=== PATIENT | male | born 1990 | race Caucasian/White ===

== ENCOUNTER 2016-06-27 20:01 | Emergency (ER) | payer OTHER, MEDICAID ==
[~2016-06-27] VITALS: Ht 180.3 cm; Wt 65.8 kg
[2016-06-27 20:09] VITALS: BP_SYST 122
--- NOTE | 2016-06-27 21:15 | NUR ---
Patient to ER bed H1 to gown for evaluation. Side rails up.
--- NOTE | 2016-06-27 21:17 | NUR ---
Pt brought in by his coworker, c/o headache and lower back pain 8 after he lifted up 50 lbs box at work. Pt denies SOB or chest pain. No other acute distress noted. Continue to monitor the pt.
--- NOTE | 2016-06-27 21:18 | NUR ---
Placed in hallway for exam. Side rails up.
--- NOTE | 2016-06-27 21:22 | NUR ---
ER CHERI Jaffe at bedside examining patient.
[2016-06-27] MEDS ORDERED: KETOROLAC TROMETHAMINE 60 MG/2 ML VIAL IM ONE (21:30)
[2016-06-27 21:39] VITALS: BP_SYST 120
--- NOTE | 2016-06-27 21:39 | NUR ---
Patient given written and verbal discharge instructions and verbalizes understanding. ER MD discussed with patient the results and treatment provided.Patient in stable condition. ID arm band removed. Rx of Motrin and Soma given. Patient educated on pain management and to follow up with PMD. Pain Scale 04/21. Opportunity for questions provided and answered.
== END 2016-06-27 21:39 | disposition home or self-care (01) ==
LOC: SED 20:01
DX: M54.5 Low back pain (principal)
CPT/HCPCS: 96372; 99283; J1885